=== PATIENT | male | born 1950 | race Hispanic/Latino ===

== ENCOUNTER → 2018-04-21 | Outpatient (CLI) | payer OTHER ==
[~2018-04-21] MED LIST: GADODIAMIDE 10 MMOL/20 ML ML IV ONE
== END | disposition home or self-care (01) ==
LOC: RAH 07:30
PROVIDERS: ATTEND Internal Medicine Gastroenterology
DX: R97.8 Other abnormal tumor markers (principal)
CPT/HCPCS: 74183; A9579

== ENCOUNTER → 2018-08-11 | Outpatient (CLI) | payer OTHER | END | disposition home or self-care (01) | LOC: RAH 10:56 | PROVIDERS: ATTEND Internal Medicine | DX: K76.0 Fatty (change of) liver, not elsewhere classified (principal) | CPT/HCPCS: 74181 ==

== ENCOUNTER → 2019-02-16 | Outpatient (CLI) | payer OTHER | END | disposition home or self-care (01) | LOC: RAH 10:54 | PROVIDERS: ATTEND Internal Medicine | DX: M50.30 Other cervical disc degeneration, unspecified cervical region (principal) | CPT/HCPCS: 72040 ==

== ENCOUNTER → 2019-04-13 | Outpatient (CLI) | payer OTHER | END | disposition home or self-care (01) | LOC: RAH 07:48 | PROVIDERS: ATTEND Internal Medicine Gastroenterology | DX: K76.0 Fatty (change of) liver, not elsewhere classified (principal); R97.8 Other abnormal tumor markers | CPT/HCPCS: 76700 ==

== ENCOUNTER → 2020-08-21 | Outpatient (CLI) | payer OTHER | END | disposition home or self-care (01) | LOC: RAH 10:04 | PROVIDERS: ATTEND Internal Medicine | DX: M16.11 Unilateral primary osteoarthritis, right hip (principal); M25.851 Other specified joint disorders, right hip | CPT/HCPCS: 73502 ==

== ENCOUNTER → 2020-12-27 | Outpatient (CLI) | payer OTHER | END | disposition home or self-care (01) | LOC: RAH 08:50 | PROVIDERS: ATTEND Internal Medicine | DX: Z01.818 Encounter for other preprocedural examination (principal) | CPT/HCPCS: 71046 ==

== ENCOUNTER → 2021-01-08 | Outpatient (CLI) | payer OTHER | END | disposition home or self-care (01) | LOC: RAH 10:07 | PROVIDERS: ATTEND Internal Medicine | DX: M79.605 Pain in left leg (principal); M79.662 Pain in left lower leg | CPT/HCPCS: 73590 ==

== ENCOUNTER 2021-01-30 10:00 | Observation (INO) | payer OTHER ==
[~2021-01-30] VITALS: Ht 167.6 cm; Wt 71.9 kg
[2021-01-30 11:14] LABS: BASOPHILS % (AUTO) 0.7 % (0.0-5.0); EOSINOPHILS % (AUTO) 0.7 % (0.0-8.0); HEMATOCRIT 41.6 % (42-54); LYMPHOCYTES % (AUTO) 15.7 % (21.0-51.0); MEAN CORPUSCULAR HGB CONC 33.7 g/dL (32.0-36.0); MONOCYTES % (AUTO) 13.8 % (3.0-13.0); NEUTROPHILS % (AUTO) 68.9 % (40.0-77.0); PLATELET COUNT (AUTO) 101 K/uL (130-400); RED BLOOD CELL COUNT(AUTO) 4.38 MIL/uL (4.50-6.20); WHITE BLOOD COUNT (AUTO) 4.2 K/uL (4.8-10.8)
[2021-01-30 11:15] LABS: APPEARANCE,URINE Clear (CLEAR); BILIRUBIN,URINE Negative (NEGATIVE); COLOR,URINE Dark Yellow (YELLOW); GLUCOSE, URINE (UA) Negative (NEGATIVE); KETONES,URINE Trace mg/dL (NEGATIVE); LEUKOCYTE ESTERASE ,URINE Negative (NEGATIVE); NITRATE,URINE Negative (NEGATIVE); OCCULT BLOOD,URINE Negative (NEGATIVE); PROTEIN,URINE Trace mg/dL (NEGATIVE)
[2021-01-30 11:29] LABS: BACTERIA,URINE Rare /HPF (None Seen); RBC,URINE 0-1 /HPF (0-1); SQUAMOUS EPITHELIAL CELL,UR Rare /HPF (0-2); WBC,URINE 0-1 /HPF (0-1)
[2021-01-30 11:39] LABS: CREATININE 0.7 mg/dL (0.5-1.5); POTASSIUM 3.9 mmol/L (3.5-5.1)
[2021-02-01] MEDS: CEFAZOLIN SODIUM 1 GM VIAL IVP SCH (11:30)
[2021-02-02] MEDS: CEFAZOLIN SODIUM 1 GM VIAL IVP SCH (11:30)
[2021-02-03] MEDS: CEFAZOLIN SODIUM 1 GM VIAL IVP SCH (11:30)
[2021-02-04 10:41] VITALS: BP 151/74
[2021-02-04] MEDS: CEFAZOLIN SODIUM 1 GM VIAL IVP SCH (11:30)
[2021-02-05] VITALS (23 sets, daily range): BP systolic 86–158; BP diastolic 53–98
[2021-02-05] MEDS ORDERED: LACTATED RINGERS 1000ML 1,000 ML IV ONE (08:10)
[2021-02-05] MEDS ORDERED: FOLI0.4T6 PO (08:21)
[2021-02-05] MEDS ORDERED: ASPI-1443 PO (08:21)
[2021-02-05] MEDS ORDERED: ATOR20TA65 PO (08:21)
[2021-02-05] MEDS ORDERED: CHOL500045 PO (08:21)
[2021-02-05] MEDS ORDERED: LISI20TA24 PO (08:21)
[2021-02-05] MEDS ORDERED: ROPIVACAINE 0.5% 5MG/ML 30ML IJ ONE (10:51)
[2021-02-05] MEDS ORDERED: ONDANSETRON 4MG INJ ONE (10:53)
[2021-02-05] MEDS ORDERED: GLYCOPYRROLATE 1 MG/5 ML SYRINGE ONE (10:53)
[2021-02-05] MEDS ORDERED: DEXAMETHASONE SOD PHOSPHATE 10MG/ML 1ML VIAL ONE (10:53)
[2021-02-05] MEDS ORDERED: LIDOCAINE PF 100MG/5ML (2%) SYRINGE 5ML ONE (10:53)
[2021-02-05] MEDS ORDERED: SUCCINYLCHOLINE 200MG/10ML SYR ONE (10:53)
[2021-02-05] MEDS ORDERED: PROPOFOL 10 MG/ML 20ML VIAL IV ONE (10:53)
[2021-02-05] MEDS ORDERED: MIDAZOLAM HCL 1 MG/ML 2ML VIAL ONE (10:54)
[2021-02-05] MEDS ORDERED: ROCURONIUM 10MG/1ML SYR 10 MG/ML ML ONE ×2 (10:54→12:03)
[2021-02-05] MEDS ORDERED: NEOSTIGMINE 5MG/5ML SYR IV ONE (10:54)
[2021-02-05] MEDS ORDERED: FENTANYL CITRATE PF 50 MCG/1 ML 2ML VIAL ONE (10:54)
[2021-02-05] MEDS ORDERED: MEPERIDINE-PF 25 MG/ML SYG ONE ×2 (11:05→14:07)
[2021-02-05] MEDS: CEFAZOLIN SODIUM 1 GM VIAL IVP SCH ×3 (11:30→18:35)
[2021-02-05] MEDS ORDERED: TRANEXAMIC ACID 1000MG/10ML ONE (11:51)
[2021-02-05] MEDS ORDERED: FENTANYL CITRATE PF 50 MCG/1 ML 5ML AMP IV ONE (12:03)
[2021-02-05] MEDS ORDERED: EPHEDRINE SULFATE 50 MG/ML AMPULE ONE (12:22)
[2021-02-05] MEDS ORDERED: PHENYLEPHRINE HCL 10 MG/ML 1ML VIAL IV ONE (12:30)
[2021-02-05] MEDS ORDERED: VANCOMYCIN 1G VIAL ONE (13:45)
[2021-02-05] MEDS ORDERED: FERROUS FUMARATE 324 MG TABLET PO PRN (14:00)
[2021-02-05] MEDS: ACETAMINOPHEN 500 MG TABLET PO SCH ×2 (14:00→21:20)
[2021-02-05] MEDS ORDERED: DiphenhydrAMINE HCL 50 MG/ML VIAL IVP PRN (14:00)
[2021-02-05] MEDS ORDERED: KCL 20 MEQ ERTAB PO PRN (14:00)
[2021-02-05] MEDS ORDERED: POTASSIUM CHLORIDE 10% ELIXIR 20 MEQ/15 ML UDCUP PO PRN (14:00)
[2021-02-05] MEDS ORDERED: OXYCODONE HCL 5 MG TAB PO PRN (14:00)
[2021-02-05] MEDS ORDERED: POTASSIUM CHLORIDE 20MEQ/100ML 100 ML IV PRN (14:00)
[2021-02-05] MEDS ORDERED: ONDANSETRON 4MG INJ IVP PRN (14:00)
[2021-02-05] MEDS: OXYCODONE HCL 5 MG TAB PO PRN (21:21)
[2021-02-06 03:34] VITALS: BP 110/71
[2021-02-06] MEDS: OXYCODONE HCL 5 MG TAB PO PRN (03:34)
[2021-02-06] MEDS: CEFAZOLIN SODIUM 1 GM VIAL IVP SCH ×2 (03:35→11:30)
[2021-02-06 05:09] LABS: HEMATOCRIT 29.7 % (42-54); MEAN CORPUSCULAR HEMOGLOBIN 31.9 pg (27.0-33.0); MEAN CORPUSCULAR HGB CONC 33.3 g/dL (32.0-36.0); MEAN CORPUSCULAR VOLUME 95.8 fL (79-99); RED BLOOD CELL COUNT(AUTO) 3.1 MIL/uL (4.50-6.20); RED CELL DISTRIBUTION WIDTH 14.9 % (11.0-15.5); WHITE BLOOD COUNT (AUTO) 7.2 K/uL (4.8-10.8)
[2021-02-06 05:26] LABS: POTASSIUM 4.2 mmol/L (3.5-5.1)
[2021-02-06] MEDS: ACETAMINOPHEN 500 MG TABLET PO SCH ×3 (05:45→21:34)
[2021-02-06 07:48] VITALS: BP 108/71
[2021-02-06] MEDS: CHOLECALCIFEROL 125 MCG PO SCH (09:00)
[2021-02-06] MEDS: LISINOPRIL 20 MG TABLET PO SCH (09:00)
[2021-02-06] MEDS: FOLIC ACID 0.4 MG PO SCH (09:00)
[2021-02-06 09:18] VITALS: BP 133/71
[2021-02-06] MEDS: POLYETHYLENE GLYCOL 3350 17 GM POWD.PACK PO SCH (10:16)
[2021-02-06] MEDS: KETOROLAC 15MG/ML VIAL (15MG/ML) IV PRN ×2 (10:16→11:44)
[2021-02-06] MEDS: ATORVASTATIN 20 MG TABLET PO SCH (10:23)
[2021-02-06 11:00] VITALS: BP 117/68
[2021-02-06 16:15] VITALS: BP 119/68
[2021-02-06 19:30] VITALS: BP 102/68
[2021-02-06] MEDS: APIXABAN 2.5 MG TABLET PO SCH (21:30)
[2021-02-07 00:19] VITALS: BP 121/63
[2021-02-07 04:12] VITALS: BP 118/57
[2021-02-07] MEDS: ACETAMINOPHEN 500 MG TABLET PO SCH ×2 (05:10→14:00)
[2021-02-07 07:50] VITALS: BP 129/68
[2021-02-07] MEDS: FOLIC ACID 0.4 MG PO SCH (09:00)
[2021-02-07] MEDS: CHOLECALCIFEROL 125 MCG PO SCH (09:00)
[2021-02-07] MEDS: ATORVASTATIN 20 MG TABLET PO SCH (09:27)
[2021-02-07] MEDS: LISINOPRIL 20 MG TABLET PO SCH (09:27)
[2021-02-07] MEDS: APIXABAN 2.5 MG TABLET PO SCH (09:28)
[2021-02-07] MEDS: POLYETHYLENE GLYCOL 3350 17 GM POWD.PACK PO SCH (09:29)
[2021-02-07 11:27] VITALS: BP 112/61
[2021-02-07] MEDS: CEFAZOLIN SODIUM 1 GM VIAL IVP SCH (11:30)
[2021-02-07] MEDS: KETOROLAC 15MG/ML VIAL (15MG/ML) IV PRN (13:42)
[2021-02-08] MEDS ORDERED: BISACODYL 10 MG SUPP.RECT RC PRN (14:00)
== END 2021-02-07 17:15 | disposition home health service (06) ==
LOC: EDSTATUS 13:00 → INTOOBSV 02-05 07:47 → OBSVTOIN 02-05 07:47 → DAHIP 02-05 07:47 → 3BH 02-05 15:11
PROVIDERS: ADMIT Orthopaedic Surgery Sports Medicine; ATTEND Orthopaedic Surgery Sports Medicine
DX: M16.11 Unilateral primary osteoarthritis, right hip (principal); Z20.822 Contact with and (suspected) exposure to COVID-19; R11.2 Nausea with vomiting, unspecified
CPT/HCPCS: 27130; 36415 ×2; 71045; 73503; 80048 ×2; 81001; 85025; 85027; 87635; 87641; 88305; 88311; 93005; 96361 ×2; 96374; 96375; 96376 ×2; 97039 ×4; 97116 ×3; 97161; 97530; A4215; A4221; A4222; A4223; A4600; A4649 ×2; A4663; A4930; A6223; C1776; G0378 ×31; J0330; J0690 ×5; J1100; J1885 ×2; J2001; J2175 ×2; J2250; J2370; J2405; J2704; J2710; J2795; J3010 ×2; J3370; J3490 ×3; J7120 ×2

== ENCOUNTER 2021-02-09 09:50 | Emergency (ER) | payer OTHER ==
[~2021-02-09] VITALS: Ht 170.2 cm; Wt 70.8 kg
[~2021-02-09 09:50] MED LIST changes: +ATOR20TA65 PO; +CHOL500045 PO; +FOLI0.4T6 PO; -GADODIAMIDE 10 MMOL/20 ML ML IV ONE; +LISI20TA24 PO
[2021-02-09 09:55] VITALS: BP 144/73
[2021-02-09 10:35] LABS: BASOPHILS % (AUTO) 0.5 % (0.0-5.0); HEMATOCRIT 22.7 % (42-54); LYMPHOCYTES % (AUTO) 14.3 % (21.0-51.0); MEAN CORPUSCULAR HGB CONC 33.9 g/dL (32.0-36.0); MEAN CORPUSCULAR VOLUME 94.2 fL (79-99); MONOCYTES % (AUTO) 22.7 % (3.0-13.0); NEUTROPHILS % (AUTO) 61.3 % (40.0-77.0); PLATELET COUNT (AUTO) 109 K/uL (130-400); RED BLOOD CELL COUNT(AUTO) 2.41 MIL/uL (4.50-6.20); RED CELL DISTRIBUTION WIDTH 14.6 % (11.0-15.5); WHITE BLOOD COUNT (AUTO) 4.1 K/uL (4.8-10.8)
[2021-02-09 10:50] LABS: BILIRUBIN,TOTAL 1.1 mg/dL (0.2-1.0); CREATININE 0.9 mg/dL (0.5-1.5); POTASSIUM 3.4 mmol/L (3.5-5.1); TOTAL PROTEIN, SERUM 6.6 g/dL (6.0-8.3)
[2021-02-09 11:45] VITALS: BP 123/89
== END 2021-02-09 12:04 | disposition home or self-care (01) ==
LOC: EDH 09:50
DX: F10.139 Alcohol abuse with withdrawal, unspecified (principal); R44.1 Visual hallucinations; D50.0 Iron deficiency anemia secondary to blood loss (chronic); L76.34 Postprocedural seroma of skin and subcutaneous tissue following other procedure; E78.00 Pure hypercholesterolemia, unspecified; I10 Essential (primary) hypertension; Z79.82 Long term (current) use of aspirin; Z79.899 Other long term (current) drug therapy; Z96.641 Presence of right artificial hip joint
CPT/HCPCS: 36415; 80053; 85025

== ENCOUNTER → 2021-04-25 | Outpatient (CLI) | payer OTHER | END | disposition home or self-care (01) | LOC: RAH 08:30 | DX: M47.812 Spondylosis without myelopathy or radiculopathy, cervical region (principal); M48.02 Spinal stenosis, cervical region; R20.0 Anesthesia of skin | CPT/HCPCS: 72040 ==

== ENCOUNTER → 2022-02-25 | Outpatient (CLI) | payer OTHER | END | disposition home or self-care (01) | LOC: RAH 13:07 | DX: Z01.818 Encounter for other preprocedural examination (principal); M47.815 Spondylosis without myelopathy or radiculopathy, thoracolumbar region | CPT/HCPCS: 71046 ==

== ENCOUNTER → 2022-10-14 | Outpatient (CLI) | payer OTHER | END | disposition home or self-care (01) | LOC: RAH 10:40 | PROVIDERS: ATTEND Internal Medicine | DX: M25.562 Pain in left knee (principal) | CPT/HCPCS: 73560 ==

== ENCOUNTER → 2023-08-11 | Outpatient (CLI) | payer OTHER | END | disposition home or self-care (01) | LOC: RAH 10:20 | DX: M25.561 Pain in right knee (principal) | CPT/HCPCS: 73562 ==

== ENCOUNTER → 2023-10-28 | Outpatient (CLI) | payer OTHER | END | disposition home or self-care (01) | LOC: RAH 08:55 | PROVIDERS: ATTEND Nurse Practitioner Family | DX: N63.20 Unspecified lump in the left breast, unspecified quadrant (principal); N64.4 Mastodynia | CPT/HCPCS: 76641; 77066 ==